=== PATIENT | female | born 1970 | race Caucasian/White ===

== ENCOUNTER 2018-06-01 02:15 | Observation (INO) | payer BC, OTHER ==
[~2018-06-01] VITALS: Ht 167.6 cm; Wt 78.0 kg
[2018-06-01] MEDS ORDERED: LORazepam 1MG TABLET PO ONE (02:30)
[2018-06-01] MEDS ORDERED: SERT50TA PO (02:36)
[2018-06-01] MEDS ORDERED: LORazepam 1MG TABLET ONE (02:50)
[2018-06-01 02:56] LABS: BASOPHILS # (AUTO) 0.04 x10^3/uL (0-0.1); BASOPHILS % (AUTO) 0 % (0-1); EOSINOPHILS # (AUTO) 0.07 x10^3/uL (0-0.4); EOSINOPHILS % (AUTO) 1 % (1-7); LYMPHOCYTES # (AUTO) 1.71 x10^3/uL (1-3.4); LYMPHOCYTES % (AUTO) 14 % (22-44); MD NO; MEAN CORPUSCULAR HEMOGLOBIN 30.9 pg (27.0-34.8); MEAN CORPUSCULAR HGB CONC 34.6 g/dL (32.4-35.8); MEAN CORPUSCULAR VOLUME 89.4 fL (80-100); MEAN PLATELET VOLUME 6.7 fL (7.4-10.4); MONOCYTES # (AUTO) 0.65 x10^3/uL (0.2-0.8); MONOCYTES % (AUTO) 5 % (2-9); NEUTROPHILS % (AUTO) 79 % (42-75); PLATELET COUNT 416 x10^3/uL (130-400); RED BLOOD COUNT 4.81 x10^6/uL (3.82-5.3); RED CELL DISTRIBUTION WIDTH 12.9 % (9.6-15.2)
[2018-06-01 03:03] LABS: ALANINE AMINOTRANSFERASE 23 U/L (12-78); ALBUMIN 4.1 g/dL (3.4-5.0); ANION GAP 6 mmol/L (5-15); CALCIUM 8.7 mg/dL (8.5-10.1); CHLORIDE 111 mmol/L (98-107); CREATININE 0.85 mg/dL (0.55-1.02)
[2018-06-01 03:05] LABS: ALKALINE PHOSPHATASE 71 U/L (45-117); BILIRUBIN,TOTAL 0.8 mg/dL (0.2-1.0); TOTAL PROTEIN 7.7 g/dL (6.4-8.2)
[2018-06-01 03:08] LABS: SALICYLATE LEVEL < 1.7 mg/dL (2.8-20.0)
[2018-06-01 03:09] LABS: ACETAMINOPHEN < 2 mcg/mL (10-30)
[2018-06-01 04:13] LABS: AMPHETAMINE SCREEN, URINE Negative (Negative); BARBITURATE SCREEN, URINE Negative (Negative); BENZODIAZEPINE SCREEN, URINE Negative (Negative); CANNABINOID SCREEN, URINE Positive (Negative); COCAINE SCREEN, URINE Negative (Negative); METHADONE SCREEN, URINE Negative (Negative); OPIATE SCREEN, URINE Negative (Negative)
[2018-06-01] MEDS ORDERED: ZIPRASIDONE 20 MG INJ IM ONE ×2 (06:32→07:00)
[2018-06-01] MEDS ORDERED: ACETAMINOPHEN 325 MG TABLET PO PRN (08:00)
[2018-06-01] MEDS ORDERED: IBUPROFEN 200 MG TABLET PO PRN (08:00)
[2018-06-01] MEDS ORDERED: SERTRALINE 50MG TABLET ONE (13:42)
[2018-06-01] MEDS: SERTRALINE 50MG TABLET PO SCH (13:43)
[2018-06-01 19:49] VITALS: BP 155/97
[2018-06-01] MEDS: LORazepam 1MG TABLET PO PRN (20:46)
[2018-06-01 22:33] VITALS: BP 123/80
[2018-06-02 07:54] VITALS: BP 125/83
[2018-06-02] MEDS: SERTRALINE 50MG TABLET PO SCH (08:29)
[2018-06-02] MEDS: LORazepam 1MG TABLET PO PRN (16:07)
== END 2018-06-02 19:05 | disposition home or self-care (01) ==
LOC: ED 05:06 → EDIP 07:47 → SUATTDRO 07:47 → 2N 19:09
PROVIDERS: ADMIT Hospitalist; ATTEND Hospitalist
DX: F22 Delusional disorders (principal); F12.90 Cannabis use, unspecified, uncomplicated; F10.21 Alcohol dependence, in remission; R40.20 Unspecified coma; Z87.891 Personal history of nicotine dependence
CPT/HCPCS: 36415; 80053; 80307; 80329; 85025; 96372; 99285; G0378; J3486; G0480